=== PATIENT | female | born 1965 | race Caucasian/White ===

== ENCOUNTER → 2021-12-05 14:35 | Outpatient (BNVA) | payer OTHER, SELFPAY | PROVIDERS: PCP Internal Medicine; Visit Provider Nurse Practitioner Family | DX: M79.7 Fibromyalgia (principal); M62.830 Muscle spasm of back; M48.02 Spinal stenosis, cervical region; M47.816 Spondylosis without myelopathy or radiculopathy, lumbar region; Z79.899 Other long term (current) drug therapy | CPT/HCPCS: 99202 ==

== ENCOUNTER → 2022-03-02 14:05 | Outpatient (BNVA) | payer OTHER, SELFPAY | PROVIDERS: PCP Internal Medicine; Visit Provider Nurse Practitioner Family | DX: M47.816 Spondylosis without myelopathy or radiculopathy, lumbar region (principal); M48.02 Spinal stenosis, cervical region; M62.830 Muscle spasm of back; M79.7 Fibromyalgia | CPT/HCPCS: 99212 ==

== ENCOUNTER 2022-12-14 15:46 | Outpatient (REF) | payer OTHER, SELFPAY ==
[2022-12-14 16:44] LABS: Anion Gap 10 (12-20); Blood Urea Nitrogen 13 mg/dL (9-16); Calcium 9.5 mg/dL (8.4-10.2); Carbon Dioxide 27 mmol/L (22-29); Chloride 107 mmol/L (96-108); Estimated Glomerular Filt Rate > 60; Glucose Random 74 mg/dL (60-115); Potassium 4.2 mmol/L (3.3-5.1); Sodium 140 mmol/L (135-145)
[2022-12-14 17:03] LABS: T4 Thyroxine 8.2 ug/dL (4.5-12.0); Thyroid Stimulating Hormone 1.34 uIU/mL (0.32-4.0)
[2022-12-14 17:14] LABS: Vitamin B12 372 pg/mL (200-900)
== END 2022-12-14 15:47 | disposition home or self-care (01) ==
LOC: HO.LAB 15:46
PROVIDERS: Visit Provider Psychiatry & Neurology Neurology
DX: G31.84 Mild cognitive impairment of uncertain or unknown etiology (principal)
CPT/HCPCS: 36415; 80048; 82607; 82746; 84436; 84443

== ENCOUNTER 2023-02-15 13:02 | Outpatient (REF) | payer OTHER, SELFPAY ==
--- NOTE | ~2023-02-15 | CT_ITS ---
EXAMINATION: CT HEAD WITHOUT CONTRAST CLINICAL INFORMATION: 57-year-old with mild cognitive impairment, unknown etiology. COMPARISON: None available. TECHNIQUE: Contiguous axial imaging was performed from the skull base to vertex without intravenous administration of contrast. This CT examination was performed using dose optimization techniques as appropriate, variously including the following: *Automated exposure control *Adjustment of mA and/or kV according to patient size (this includes techniques or standardized protocols for targeted exams where dose is matched to indication/reason for exam; i.e. extremities or head) *Use of iterative reconstruction technique DLP: 864 mGy-cm FINDINGS: Brain Volume: Within normal limits within the limitations of qualitative assessment. Structural: Partially empty sella noted, normal variant. Brain and Meninges: The brain parenchyma is normal in morphology. Quinn-white matter interface is preserved. There is a small patchy zone of hypodensity in the right subcortical frontal white matter near the convexity which is nonspecific. A few tiny patchy zones of the subcortical white matter hypodensity are seen in the parietal lobes bilaterally. Otherwise, the brain parenchyma is normal in attenuation. No intracranial hemorrhage, extra-axial fluid collection, space-occupying process or mass effect. Ganglionic structures, midbrain/brainstem appear grossly intact when accounting for artifacts. Ventricles and Subarachnoid Spaces: The ventricular system and subarachnoid spaces are within normal range; there is no hydrocephalus. Orbital Structures: Grossly unremarkable within the limitations of the study. Osseous Structures, Sinuses/Mastoids, Extracranial Soft Tissues: Calvarium is intact. The visualized airspaces are mostly unopacified with only minimal retained partially aerosolized secretions in the right ethmoid sinus. The visualized extracranial soft tissue structures are symmetric and unremarkable. CT/CT head/brain wo IV con IMPRESSION: 1. No acute intracranial process. No evidence for intracranial hemorrhage, extra-axial fluid collection, space-occupying process, mass effect or hydrocephalus. No disproportionate brain parenchymal volume loss identified within the limitations of a qualitative assessment. 2. Small patchy zones of the subcortical white matter hypodensity in the right frontal lobe and bilateral parietal lobes which are nonspecific, but could reflect minimal foci of chronic ischemic microangiopathy. If clinically warranted, consider MRI of the brain for further assessment.
== END 2023-02-15 13:03 | disposition home or self-care (01) ==
LOC: HO.CT 13:02
PROVIDERS: PCP Internal Medicine; Visit Provider Psychiatry & Neurology Neurology
DX: G31.84 Mild cognitive impairment of uncertain or unknown etiology (principal)
CPT/HCPCS: 70450

== ENCOUNTER 2023-06-02 14:03 | Outpatient (REF) | payer OTHER, SELFPAY ==
[2023-06-02 15:19] LABS: C Reactive Protein 0.73 mg/dL (< or = 0.50)
[2023-06-02 15:47] LABS: Erythrocyte Sedimentation Rate 13 MM/HR (0-20)
== END 2023-06-02 14:04 | disposition home or self-care (01) ==
LOC: HO.LAB 14:03
PROVIDERS: PCP Internal Medicine; Visit Provider Registered Nurse
DX: G44.209 Tension-type headache, unspecified, not intractable (principal)
CPT/HCPCS: 36415; 85652; 86140